=== PATIENT | female | born 1960 | race African-American/Black ===

== ENCOUNTER 2017-06-06 09:26 | Outpatient (CLI) | payer OTHER ==
[~2017-06-06 09:26] MED LIST: Iopamidol 370 76% 100 ML VIAL ONE
--- NOTE | 2017-06-06 11:22 | CT ---
EXAM: ABDOMEN CT WITH CONTRAST PELVIC CT WITH CONTRAST: HISTORY: Rectal adenocarcinoma. Continued rectal pain since surgery. Previous chemotherapy and radiation the rapy in 2016. COMPARISON: 12/15/11. TECHNIQUE: An abdomen and pelvic CT are performed with IV contrast. Coronal reformatted images are submitted fo r interpretation. FINDINGS: ABDOMEN CT: Stable opacity in the left lung base, having a component abutting the pleura. This opacity continues to measure 0.6 cm. Stable emphysematous changes of the lung parenchyma. Heart size is normal. No significant pericardial fluid. The descending thoracic aorta and abdominal aorta have an overall nor mal caliber. No periaortic fat stranding. Intra- and extrahepatic portal vein is patent. Heterogeneous attenuation of the liver likely due to areas of fatty infiltration. No enhancing arlet s. The spleen, pancreas, and right adrenal gland have appropriate attenuation. There is a 1.9 x 1.2 cm left adrenal nodule (previously measuring 2.0 x 1.6 cm). Symmetric enhancement of the kidneys. Bilaterally, no obstructive uropathy. No gastrohepatic, retrocrural, or periportal lymphadenopathy. No mesenteric mass, lymphadenopathy, free air, or free fluid. Limited evaluation of the gastric mucosa and duodenum, as well as the small bowel loops due to incomp lete oral contrast opacification. No evidence of bowel obstruction. Ileocecal junction is normal. Normal-caliber appendix. There is scattered fecal material in the visualized colon. The left lower quadrant colostomy is identified. There is a parastomal hernia with induration of the herniated fat as well as evidence of fluid. Fluid attenuation and induration have developed when compared to the p rior examination. PELVIC CT: The urinary bladder is unremarkable. There are expected postoperative changes in the region of the r ectum. Uterus and right adnexa are unremarkable. There is a peripherally calcified centrally fat-at tenuation lesion in the left pelvis, unchanged from the prior exam. No lytic or blastic lesions. IMPRESSION: 1. Left-sided colostomy with herniation of the parastomal fat. There is fluid and induration of the herniated parastomal fat. 2. Redemonstration of left adrenal nodule, incompletely evaluated. 3. Fat containing lesion in the left hemipelvis, likely left dermoid. POS: [facility]
== END 2017-06-06 09:27 | disposition home or self-care (01) ==
LOC: CT 09:26
PROVIDERS: ATTEND Surgery
DX: C20 Malignant neoplasm of rectum (principal); K46.9 Unspecified abdominal hernia without obstruction or gangrene; N94.9 Unspecified condition associated with female genital organs and menstrual cycle; Z93.3 Colostomy status
CPT/HCPCS: 74177

== ENCOUNTER 2017-12-20 08:59 | Day surgery (SDC) | payer OTHER ==
[2017-12-14 11:28] VITALS: BMI 34.1
[2017-12-20] MEDS ORDERED: Bupivacaine/Epinephrine 0.25% 30 ML VIAL ONE (09:51)
[2017-12-20] MEDS ORDERED: Lidocaine 2% Jelly 5 ML TUBE ONE (09:51)
[2017-12-20] MEDS ORDERED: CEFAZOLIN/Water 2 GM/20 ML SYRINGE ONE (10:01)
--- NOTE | 2017-12-20 11:24 | OP ---
DATE OF PROCEDURE: 12/20/2017 PREOPERATIVE DIAGNOSES: 1. Severe perianal pain with chronic open wound. 2. History of rectal cancer, status post abdominoperineal resection. POSTOPERATIVE DIAGNOSES: 1. Severe perianal pain with chronic open wound. 2. History of rectal cancer, status post abdominoperineal resection. PROCEDURES: 1. MediPort removal. 2. Exam under anesthesia with probe of fistula tract with fibrin glue placement. SURGEON: Jb Harrison M.D. ANESTHESIA: General. DRAINS: None. COMPLICATIONS: None. SPECIMEN: None. FINDINGS: There is a small chronic open wound and the old perianal wound. This tracks up approximat arun an inch. Exam under anesthesia reveals no obvious involvement of the posterior vaginal wall. TECHNIQUE: The patient was taken to the operating room and placed supine on the table. After genera l anesthetic was obtained, the chest and an area of previous MediPort site as well as her perianal ar ea were all prepped and draped in sterile fashion. She has been put in lithotomy position. Local an esthetic infiltrated over the old MediPort site. MediPort wound is reopened and the MediPort removed . The MediPort is site closed using 3-0 Vicryl, 4-0 Monocryl, and Dermabond. Next, examination of h er perineum reveals a small chronic sinus tract in the mid previous APR wound. This is probed and it tunnels anterior approximately 2 inches. If does not; however, penetrates the posterior vaginal wal l. The tract is irritated. It is probed for foreign body. There are none. It is irrigated and loc al anesthetic is applied. The tract is injected with fibrin glue. The patient en route to recovery in stable condition. All instrument counts, needle counts, lap counts are correct.
[2017-12-20] MEDS ORDERED: Morphine 4 MG/ML VIAL ONE ×3 (11:31→11:51)
[2017-12-20] MEDS ORDERED: PROPOFOL 200 MG/20 ML VIAL ONE (13:08)
[2017-12-20] MEDS ORDERED: Ondansetron HCl/PF 4 MG/2 ML Vial ONE (13:08)
[2017-12-20] MEDS ORDERED: Dexamethasone 20 MG/5 ML VIAL ONE (13:08)
== END 2017-12-20 13:00 | disposition home or self-care (01) ==
LOC: SDC 08:59 → EEVIPCON 09:15 → SDC 13:00
PROVIDERS: ATTEND Surgery
PROC: 0JPT0XZ Removal of Tunneled Vascular Access Device from Trunk Subcutaneous Tissue and Fascia, Open Approach (ICD-10-PCS; principal; 2017-12-20)
PROC: 0JQ Subcutaneous Tissue and Fascia, Repair (ICD-10-PCS; principal; 2017-12-20)
DX: K62.89 Other specified diseases of anus and rectum (principal); I10 Essential (primary) hypertension; F17.210 Nicotine dependence, cigarettes, uncomplicated; Z45.2 Encounter for adjustment and management of vascular access device; Z79.899 Other long term (current) drug therapy; Z88.5 Allergy status to narcotic agent
CPT/HCPCS: 96374; J1100; J2270; J2405; J2704; Q9968